=== PATIENT | male | born 1950 | race African-American/Black ===

== ENCOUNTER 2021-08-16 11:15 | Inpatient (IN) ==
[2021-08-16] MEDS ORDERED: NICOTINE 21 MG/24 HR PATCH TRANSDERM PRN (13:21)
[2021-08-16] MEDS ORDERED: ACETAMINOPHEN 325 MG TABLET PO PRN (13:21)
[2021-08-16] MEDS ORDERED: DEXTROSE 10% 250 ML BAG IV PRN (13:21)
[2021-08-16] MEDS ORDERED: BISACODYL 5 MG TABLET PO PRN (13:21)
[2021-08-16] MEDS ORDERED: GLUCAGON 1 MG VIAL IM PRN (13:21)
[2021-08-16] MEDS ORDERED: MORPHINE 4 MG/1 ML VIAL IV PRN (13:21)
[2021-08-16] MEDS ORDERED: ONDANSETRON 4 MG/2 ML VIAL IV PRN (13:21)
[2021-08-16 13:42] LABS: Basophils # 0.1 10*3/uL (0.0-0.2); Basophils % 1.3 % (0.0-0.8); Eosinophils # 0.1 10*3/uL (0.0-0.87); Hematocrit 33.4 VOL% (42.0-52.0); Hemoglobin 11.5 GM/DL (14.0-18.0); Immature Granulocytes % 0.4 %; Immature Granulocytes Absolute 0.02 #; Lymphocytes # 1.4 10*3/uL (1.4-4.0); Lymphocytes % 26.4 % (21.2-54.2); Mean Corpuscular HGB Conc 34.4 GM/DL (32-36); Mean Corpuscular Volume 103.7 FL (87-102); Mean Platelet Volume 9.6 FL (9.6-12.0); Monocytes % 11.2 % (1.7-12.7); Neutrophils % 58.7 % (38.7-73.9); Platelet Count 299 T/CUMM (130-400); Red Blood Count 3.22 MC/CUMM (3.8-5.5); Red Cell Distribution Width 12.6 % (9.3-17.3); White Blood Count 5.5 T/CUMM (4-12)
[2021-08-16 14:05] LABS: Albumin 2.9 G/DL (3.4-5.0); Bilirubin,Total 0.6 MG/DL (0.20-1.00); Osmolality,Calculated 259.8 MOS/KG (273-304); Potassium 3.2 MMOL/L (3.5-5.1); Total Protein 7.3 G/DL (6.4-8.2)
[2021-08-16 14:13] LABS: Eosinophils 2 % (0-10); Lymphocytes 24 % (20-55); Macrocytosis 1+; Polychromasia Slight; Segmented Neutrophils 64 % (50-85); Stomatocytes Few; Total Cells Counted 100
[2021-08-16] MEDS ORDERED: MAGNESIUM SULF RIDER 4 GM/100 ML PREMIX IV PRN (15:57)
[2021-08-16] MEDS ORDERED: MAGNESIUM SULF RIDER 2 GM/50 ML PREMIX IV PRN (15:57)
[2021-08-16] MEDS ORDERED: POTASSIUM CHLORIDE 20 MEQ TABLET PO PRN (15:57)
[2021-08-16] MEDS: SODIUM CHLORIDE 0.9% 1,000 ML IV SCH (16:00)
[2021-08-16] MEDS: DOCUSATE SODIUM 100 MG CAPSULE PO SCH (20:36)
[2021-08-17] MEDS: SODIUM CHLORIDE 0.9% 1,000 ML IV SCH ×2 (05:27→23:25)
[2021-08-17 05:40] LABS: Basophils # 0.1 10*3/uL (0.0-0.2); Eosinophils # 0.2 10*3/uL (0.0-0.87); Eosinophils % 2.6 % (0.00-10.9); Hematocrit 33.4 VOL% (42.0-52.0); Hemoglobin 11.4 GM/DL (14.0-18.0); Immature Granulocytes % 0.4 %; Immature Granulocytes Absolute 0.03 #; Lymphocytes % 26.9 % (21.2-54.2); Mean Corpuscular HGB Conc 34.1 GM/DL (32-36); Mean Corpuscular Volume 104.7 FL (87-102); Mean Platelet Volume 10.6 FL (9.6-12.0); Monocytes % 13.4 % (1.7-12.7); Neutrophils % 55.7 % (38.7-73.9); Platelet Count 282 T/CUMM (130-400); Red Blood Count 3.19 MC/CUMM (3.8-5.5); Red Cell Distribution Width 12.7 % (9.3-17.3); White Blood Count 7.3 T/CUMM (4-12)
[2021-08-17 06:08] LABS: Free T4 (Free Thyroxine) 0.92 NG/DL (0.76-1.46); Thyroid Stimulating Hormone 2.06 uIU/ml (0.358-3.74)
[2021-08-17 06:13] LABS: Folate 5.05 NG/ML (5.38-24.0)
[2021-08-17 06:59] LABS: Calcium 8.8 MG/DL (8.5-10.1); Osmolality,Calculated 261.8 MOS/KG (273-304); Potassium 3.6 MMOL/L (3.5-5.1)
[2021-08-17] MEDS ORDERED: ACETAMINOPHEN 500 MG TABLET PO ONE (08:00)
[2021-08-17] MEDS ORDERED: FAMOTIDINE 20 MG TABLET PO ONE (08:00)
[2021-08-17] MEDS ORDERED: IPRATROPIUM 500 MCG/2.5 ML NEB RESP TX ONE (08:00)
[2021-08-17] MEDS ORDERED: GABAPENTIN 400 MG CAPSULE PO ONE (08:00)
[2021-08-17] MEDS ORDERED: ALBUTEROL 2.5 MG/3 ML NEB RESP TX ONE (08:00)
[2021-08-17] MEDS: ERGOCALCIFEROL 50,000 UNIT CAPSULE PO SCH (08:50)
[2021-08-17] MEDS: DOCUSATE SODIUM 100 MG CAPSULE PO SCH ×2 (08:50→20:35)
[2021-08-17] MEDS: FOLIC ACID 1 MG TABLET PO SCH (08:51)
[2021-08-17] MEDS: CYANOCOBALAMIN 500 MCG TABLET PO SCH (08:51)
[2021-08-17] MEDS ORDERED: fentaNYL 100 MCG/2 ML VIAL ONE (09:50)
[2021-08-17] MEDS ORDERED: BUPIVACAINE 0.5% 50 ML VIAL ONE (09:50)
[2021-08-17] MEDS ORDERED: ALBUMIN 25% 25 GM/100 ML VIAL IV ONE (10:15)
[2021-08-17] MEDS ORDERED: ceFAZolin 1,000 MG VIAL ONE (10:16)
[2021-08-17] MEDS ORDERED: MAGNESIUM HYDROXIDE SUSP 30 ML UDCUP PO PRN (10:47)
[2021-08-17] MEDS ORDERED: ONDANSETRON 4 MG/2 ML VIAL ONE (11:24)
[2021-08-17] MEDS ORDERED: LIDOCAINE 2% 5 ML VIAL ONE (11:24)
[2021-08-17] MEDS ORDERED: SUCCINYLCHOLINE 200 MG/10 ML VIAL ONE (11:24)
[2021-08-17] MEDS ORDERED: DEXAMETHASONE 4 MG/1 ML VIAL ONE (11:24)
[2021-08-17] MEDS ORDERED: ROCURONIUM 50 MG/5 ML VIAL IV ONE (11:24)
[2021-08-17] MEDS ORDERED: propofoL 200 MG/20 ML VIAL IV ONE (11:24)
[2021-08-17] MEDS ORDERED: LACTATED RINGERS 2,000 ML IV ONE (11:24)
[2021-08-17] MEDS ORDERED: SEVOFLURANE 1 UNIT/15 MINUTE INH ONE (11:25)
[2021-08-17] MEDS ORDERED: KETOROLAC 30 MG/1 ML VIAL ONE (11:29)
[2021-08-17] MEDS ORDERED: METOPROLOL TARTRATE 5 MG/5 ML VIAL IV ONE (11:29)
[2021-08-17] MEDS ORDERED: LABETALOL 20 MG/4 ML SYRINGE IV ONE (12:28)
[2021-08-17] MEDS ORDERED: NALOXONE 0.4 MG/ML VIAL ONE (13:00)
[2021-08-17] MEDS ORDERED: NALOXONE 0.4 MG/ML VIAL IV ONE (13:25)
[2021-08-17] MEDS: ALBUTEROL/IPRATROPIUM 3 ML NEB RESP TX SCH ×2 (14:07→19:34)
[2021-08-17] MEDS: ENOXAPARIN 40 MG/0.4 ML SYRINGE SUBCUT SCH (16:18)
[2021-08-17] MEDS: ceFAZolin 2,000 MG/50 ML DUPLEX IV SCH (17:42)
[2021-08-18] MEDS: ALBUTEROL/IPRATROPIUM 3 ML NEB RESP TX SCH ×4 (01:00→19:26)
[2021-08-18] MEDS: ceFAZolin 2,000 MG/50 ML DUPLEX IV SCH (01:19)
[2021-08-18 05:38] LABS: Basophils % 0.2 % (0.0-0.8); Hematocrit 24.9 VOL% (42.0-52.0); Immature Granulocytes % 0.6 %; Immature Granulocytes Absolute 0.05 #; Lymphocytes # 0.6 10*3/uL (1.4-4.0); Lymphocytes % 6.8 % (21.2-54.2); Mean Corpuscular HGB Conc 34.1 GM/DL (32-36); Mean Corpuscular Volume 105.5 FL (87-102); Mean Platelet Volume 10.5 FL (9.6-12.0); Monocytes % 9.7 % (1.7-12.7); Neutrophils % 82.7 % (38.7-73.9); Platelet Count 270 T/CUMM (130-400); Red Cell Distribution Width 12.5 % (9.3-17.3); White Blood Count 8.9 T/CUMM (4-12)
[2021-08-18 05:41] LABS: Hemoglobin 8.5 GM/DL (14.0-18.0); Red Blood Count 2.36 MC/CUMM (3.8-5.5)
[2021-08-18 05:46] LABS: Calcium 7.8 MG/DL (8.5-10.1); Osmolality,Calculated 274.1 MOS/KG (273-304); Potassium 3.7 MMOL/L (3.5-5.1)
[2021-08-18 05:52] LABS: Calcium 8.2 MG/DL (8.5-10.1); Osmolality,Calculated 271.4 MOS/KG (273-304); Potassium 3.6 MMOL/L (3.5-5.1)
[2021-08-18] MEDS: DOCUSATE SODIUM 100 MG CAPSULE PO SCH ×2 (09:20→20:00)
[2021-08-18] MEDS: ERGOCALCIFEROL 50,000 UNIT CAPSULE PO SCH (09:20)
[2021-08-18] MEDS: CYANOCOBALAMIN 500 MCG TABLET PO SCH (09:20)
[2021-08-18] MEDS: FOLIC ACID 1 MG TABLET PO SCH (09:20)
[2021-08-18] MEDS: PANTOPRAZOLE 40 MG TABLET PO SCH (09:20)
[2021-08-18] MEDS: ASPIRIN EC 325 MG TABLET PO SCH (09:20)
[2021-08-18 09:27] LABS: % Iron Saturation 7.4 % (18-50); Ferritin 297.5 ng/mL (26-388)
[2021-08-18] MEDS: FERRIC GLUCONATE COMPLEX 125 MG in SODIUM CHLORIDE 0.9% 100 ML IV SCH (14:58)
[2021-08-18] MEDS: ENOXAPARIN 40 MG/0.4 ML SYRINGE SUBCUT SCH (16:51)
[2021-08-18] MEDS: SODIUM CHLORIDE 0.9% 1,000 ML IV SCH ×2 (16:51→19:28)
[2021-08-19] MEDS: ALBUTEROL/IPRATROPIUM 3 ML NEB RESP TX SCH ×4 (00:38→19:55)
[2021-08-19 05:08] LABS: Basophils % 0.4 % (0.0-0.8); Eosinophils % 0.3 % (0.00-10.9); Hematocrit 24.1 VOL% (42.0-52.0); Hemoglobin 8.1 GM/DL (14.0-18.0); Immature Granulocytes % 0.6 %; Immature Granulocytes Absolute 0.06 #; Mean Corpuscular HGB Conc 33.6 GM/DL (32-36); Mean Corpuscular Volume 106.2 FL (87-102); Mean Platelet Volume 10.2 FL (9.6-12.0); Monocytes % 15.1 % (1.7-12.7); Neutrophils % 62.6 % (38.7-73.9); Platelet Count 275 T/CUMM (130-400); Red Blood Count 2.27 MC/CUMM (3.8-5.5); Red Cell Distribution Width 13.1 % (9.3-17.3); White Blood Count 9.4 T/CUMM (4-12)
[2021-08-19 05:22] LABS: Calcium 8.1 MG/DL (8.5-10.1); Osmolality,Calculated 265.2 MOS/KG (273-304); Potassium 3.7 MMOL/L (3.5-5.1)
[2021-08-19] MEDS: ASPIRIN EC 325 MG TABLET PO SCH (10:18)
[2021-08-19] MEDS: DOCUSATE SODIUM 100 MG CAPSULE PO SCH ×2 (10:19→20:29)
[2021-08-19] MEDS: CYANOCOBALAMIN 500 MCG TABLET PO SCH (10:19)
[2021-08-19] MEDS: FOLIC ACID 1 MG TABLET PO SCH (10:19)
[2021-08-19] MEDS: PANTOPRAZOLE 40 MG TABLET PO SCH (10:19)
[2021-08-19] MEDS: FERRIC GLUCONATE COMPLEX 125 MG in SODIUM CHLORIDE 0.9% 100 ML IV SCH (10:21)
[2021-08-19] MEDS: SODIUM CHLORIDE 0.9% 1,000 ML IV SCH (10:56)
[2021-08-19 12:06] LABS: Bilirubin,Urine Negative (Negative); Blood, Urine Small mg/dL (Negative); Glucose,Urine (UA) Negative (Negative); Ketones,Urine Negative (Negative); Mucus,Urine Occasional /LPF (Occasional); Nitrite,Urine Negative (Negative); Protein,Urine Negative (Negative); RBC,Urine 4 /HPF (0-4); Urine Appearance Clear (Clear); Urine Color Yellow (Yellow); Urine pH 5.5 (4.5-8.0)
[2021-08-19] MEDS: AZITHROMYCIN INJ 500 MG in SODIUM CHLORIDE 0.9% 250 ML IV SCH (15:07)
[2021-08-19] MEDS: ENOXAPARIN 40 MG/0.4 ML SYRINGE SUBCUT SCH (15:43)
[2021-08-19] MEDS: cefTRIAXone 1,000 MG in SODIUM CHLORIDE 0.9% 100 ML IV SCH (17:02)
[2021-08-20] MEDS: ALBUTEROL/IPRATROPIUM 3 ML NEB RESP TX SCH ×4 (00:49→20:00)
[2021-08-20 05:54] LABS: Basophils % 0.4 % (0.0-0.8); Eosinophils % 0.5 % (0.00-10.9); Hematocrit 24.2 VOL% (42.0-52.0); Hemoglobin 8.2 GM/DL (14.0-18.0); Immature Granulocytes % 0.5 %; Immature Granulocytes Absolute 0.04 #; Lymphocytes # 1.8 10*3/uL (1.4-4.0); Lymphocytes % 21.8 % (21.2-54.2); Mean Corpuscular HGB Conc 33.9 GM/DL (32-36); Mean Corpuscular Volume 107.1 FL (87-102); Mean Platelet Volume 9.8 FL (9.6-12.0); Monocytes % 14.9 % (1.7-12.7); Neutrophils % 61.9 % (38.7-73.9); Platelet Count 295 T/CUMM (130-400); Red Blood Count 2.26 MC/CUMM (3.8-5.5); Red Cell Distribution Width 13.3 % (9.3-17.3); White Blood Count 8.1 T/CUMM (4-12)
[2021-08-20 06:11] LABS: Calcium 7.9 MG/DL (8.5-10.1); Osmolality,Calculated 270.8 MOS/KG (273-304)
[2021-08-20] MEDS ORDERED: MAGNESIUM SULF RIDER 2 GM/50 ML PREMIX IV ONE (08:00)
[2021-08-20] MEDS: cefTRIAXone 1,000 MG in SODIUM CHLORIDE 0.9% 100 ML IV SCH (08:59)
[2021-08-20] MEDS: AZITHROMYCIN INJ 500 MG in SODIUM CHLORIDE 0.9% 250 ML IV SCH (09:00)
[2021-08-20] MEDS: DOCUSATE SODIUM 100 MG CAPSULE PO SCH ×2 (09:03→21:11)
[2021-08-20] MEDS: CYANOCOBALAMIN 500 MCG TABLET PO SCH (09:03)
[2021-08-20] MEDS: PANTOPRAZOLE 40 MG TABLET PO SCH (09:03)
[2021-08-20] MEDS: FOLIC ACID 1 MG TABLET PO SCH (09:04)
[2021-08-20] MEDS: ASPIRIN EC 325 MG TABLET PO SCH (09:04)
[2021-08-20] MEDS: FERRIC GLUCONATE COMPLEX 125 MG in SODIUM CHLORIDE 0.9% 100 ML IV SCH (09:21)
[2021-08-20] MEDS ORDERED: MORPHINE 2 MG/1 ML SYRINGE IV PRN (14:24)
[2021-08-21] MEDS: ALBUTEROL/IPRATROPIUM 3 ML NEB RESP TX SCH ×4 (01:50→19:15)
[2021-08-21 05:44] LABS: Basophils % 0.4 % (0.0-0.8); Eosinophils # 0.2 10*3/uL (0.0-0.87); Hematocrit 25.5 VOL% (42.0-52.0); Hemoglobin 8.4 GM/DL (14.0-18.0); Immature Granulocytes % 0.4 %; Immature Granulocytes Absolute 0.03 #; Lymphocytes # 1.7 10*3/uL (1.4-4.0); Lymphocytes % 20.6 % (21.2-54.2); Mean Corpuscular HGB Conc 32.9 GM/DL (32-36); Mean Corpuscular Volume 106.7 FL (87-102); Monocytes % 12.3 % (1.7-12.7); Neutrophils % 64.3 % (38.7-73.9); Platelet Count 320 T/CUMM (130-400); Red Blood Count 2.39 MC/CUMM (3.8-5.5); Red Cell Distribution Width 13.2 % (9.3-17.3); White Blood Count 8.1 T/CUMM (4-12)
[2021-08-21 06:06] LABS: Calcium 8.5 MG/DL (8.5-10.1); Osmolality,Calculated 267.1 MOS/KG (273-304); Potassium 4.2 MMOL/L (3.5-5.1)
[2021-08-21] MEDS: PANTOPRAZOLE 40 MG TABLET PO SCH (09:21)
[2021-08-21] MEDS: FERRIC GLUCONATE COMPLEX 125 MG in SODIUM CHLORIDE 0.9% 100 ML IV SCH (09:21)
[2021-08-21] MEDS: ASPIRIN EC 325 MG TABLET PO SCH (09:21)
[2021-08-21] MEDS: CYANOCOBALAMIN 500 MCG TABLET PO SCH (09:21)
[2021-08-21] MEDS: FOLIC ACID 1 MG TABLET PO SCH (09:21)
[2021-08-21] MEDS: DOCUSATE SODIUM 100 MG CAPSULE PO SCH ×2 (09:21→21:36)
[2021-08-21] MEDS: cefTRIAXone 1,000 MG in SODIUM CHLORIDE 0.9% 100 ML IV SCH (09:22)
[2021-08-21] MEDS: AZITHROMYCIN INJ 500 MG in SODIUM CHLORIDE 0.9% 250 ML IV SCH (10:35)
[2021-08-22] MEDS: ALBUTEROL/IPRATROPIUM 3 ML NEB RESP TX SCH ×3 (01:40→13:08)
[2021-08-22 06:05] LABS: Basophils # 0.1 10*3/uL (0.0-0.2); Basophils % 0.8 % (0.0-0.8); Eosinophils # 0.3 10*3/uL (0.0-0.87); Eosinophils % 4.5 % (0.00-10.9); Hematocrit 23.6 VOL% (42.0-52.0); Hemoglobin 7.9 GM/DL (14.0-18.0); Immature Granulocytes % 0.3 %; Immature Granulocytes Absolute 0.02 #; Lymphocytes # 1.8 10*3/uL (1.4-4.0); Lymphocytes % 30.3 % (21.2-54.2); Mean Corpuscular HGB Conc 33.5 GM/DL (32-36); Mean Corpuscular Volume 106.3 FL (87-102); Monocytes % 14.6 % (1.7-12.7); Neutrophils % 49.5 % (38.7-73.9); Platelet Count 284 T/CUMM (130-400); Red Blood Count 2.22 MC/CUMM (3.8-5.5); Red Cell Distribution Width 13.3 % (9.3-17.3)
[2021-08-22 06:26] LABS: Osmolality,Calculated 272.7 MOS/KG (273-304); Potassium 3.5 MMOL/L (3.5-5.1)
[2021-08-22 06:33] LABS: Eosinophils 6 % (0-10); Hypochromia Slight; Lymphocytes 32 % (20-55); Macrocytosis Slight; Segmented Neutrophils 50 % (50-85); Total Cells Counted 100
[2021-08-22] MEDS ORDERED: MAGNESIUM OXIDE 400 MG TABLET PO ONE (09:00)
[2021-08-22] MEDS: CYANOCOBALAMIN 500 MCG TABLET PO SCH (09:36)
[2021-08-22] MEDS: AZITHROMYCIN INJ 500 MG in SODIUM CHLORIDE 0.9% 250 ML IV SCH (09:37)
[2021-08-22] MEDS: ASPIRIN EC 325 MG TABLET PO SCH (09:37)
[2021-08-22] MEDS: DOCUSATE SODIUM 100 MG CAPSULE PO SCH (09:37)
[2021-08-22] MEDS: FOLIC ACID 1 MG TABLET PO SCH (09:37)
[2021-08-22] MEDS: FERRIC GLUCONATE COMPLEX 125 MG in SODIUM CHLORIDE 0.9% 100 ML IV SCH (09:37)
[2021-08-22] MEDS: PANTOPRAZOLE 40 MG TABLET PO SCH (09:37)
[2021-08-22] MEDS: cefTRIAXone 1,000 MG in SODIUM CHLORIDE 0.9% 100 ML IV SCH (09:37)
[2021-08-22 11:55] VITALS: BP 117/73
== END 2021-08-22 13:23 | disposition swing bed (61) | DRG 480 ==
LOC: EDUNIT# → EDBD → N.ED 11:15 → N.EDINP 13:21 → SUATTDRO 13:21 → INTOOBSV 13:21 → N.EDINP 14:24 → N.3E 14:34
PROVIDERS: ADMIT Internal Medicine; ATTEND Internal Medicine